=== PATIENT | female | born 1995 | race Hispanic/Latino ===

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

== ENCOUNTER 2017-06-04 15:42 | Emergency (ER) | payer OTHER ==
[2017-06-04] MEDS ORDERED: Sodium Chloride 0.9% 1,000 ML IV STA (16:29)
--- NOTE | 2017-06-04 16:33 | ED PDOC ---
HPI: Female Pain Time Seen by Provider: 06/04/17 16:19 Chief Complaint (Nursing): Female Genitourinary Chief Complaint (Provider): Female Genitourinary History Per: Patient History/Exam Limitations: no limitations Onset/Duration Of Symptoms: Days (x2) Current Symptoms Are (Timing): Still Present Additional Complaint(s): 22 year old female, currently 14 weeks with previous medical history of hypertension, ADHD and asthma, presents to the emergency department with a complaint of vaginal spotting associated with lower abdominal cramping, nausea and decreased appetite ongoing since last night. Denied any vomiting, diarrhea, painful urination, weakness or back pain. P:0 PMD: Unruly Hidalgo MD Past Medical History Reviewed: Historical Data, Nursing Documentation, Vital Signs Vital Signs: Last Vital Signs Temp 97.9 F 06/04/17 15:52 Pulse 95 H 06/04/17 15:52 Resp 18 06/04/17 15:52 BP 140/60 06/04/17 15:52 Pulse Ox 99 06/04/17 15:52 - Medical History PMH: Anxiety, Asthma, Depression, HTN, Hypercholesterolemia Denies: CHF, Deep Vein Thrombosis, Pulmonary Embolism Other PMH: ADHD - Surgical History Surgical History: No Surg Hx - Family History Family History: States: Unknown Family Hx - Social History Current smoker - smoking cessation education provided: No Alcohol: None Drugs: Denies - Home Medications Home Medications: Ambulatory Orders Medication Instructions Recorded Albuterol HFA [Ventolin HFA 90 1 puff IH ASDIR #1 unit 10/25/16 mcg/actuation (8 g)] Benzonatate 200 mg PO TID PRN #20 capsule 10/25/16 Levofloxacin [Levaquin] 500 mg PO DAILY #7 tablet 10/25/16 Permethrin [Elimite] 1 appl TP ONCE #1 bottle 10/31/16 - Allergies Allergies/Adverse Reactions: Allergies Allergy/AdvReac Type Severity Reaction Status Date / Time azithromycin Allergy RASH Verified 06/04/17 15:52 [From Zithromax Z-Shahab] Penicillins Allergy ANAPHYLAXIS Verified 06/04/17 15:52 Review of Systems ROS Statement: Except As Marked, All Systems Reviewed And Found Negative Gastrointestinal: Positive for: Nausea, Abdominal Pain (lower cramping), Other ( decreased appetite). Negative for: Vomiting, Diarrhea Genitourinary Female: Positive for: Vaginal Bleeding (spotting). Negative for: Dysuria Musculoskeletal: Negative for: Back Pain Neurological: Negative for: Weakness Physical Exam - Reviewed Nursing Documentation Reviewed: Yes Vital Signs Reviewed: Yes - Physical Exam Appears: Positive for: Well, Non-toxic, No Acute Distress Head Exam: Positive for: ATRAUMATIC, NORMAL INSPECTION, NORMOCEPHALIC Skin: Positive for: Normal Color Eye Exam: Positive for: Normal appearance, EOMI, PERRL. Negative for: Nystagmus Neck: Positive for: Normal, Painless ROM. Negative for: Decreased ROM Cardiovascular/Chest: Positive for: Regular Rate, Rhythm, Chest Non Tender Respiratory: Positive for: Normal Breath Sounds, Decreased Breath Sounds. Negative for: Wheezing, Respiratory Distress Gastrointestinal/Abdominal: Positive for: Soft, Tenderness (mild lower pelvis). Negative for: Normal Exam Back: Positive for: Normal Inspection. Negative for: L CVA Tenderness, R CVA Tenderness Extremity: Positive for: Normal ROM (lower). Negative for: Pedal Edema ( bilateral), Calf Tenderness (bilateral) Neurologic/Psych: Positive for: Alert (x3), Oriented - Laboratory Results Result Diagrams: 06/04/17 16:50 - ECG O2 Sat by Pulse Oximetry: 99 (RA) Pulse Ox Interpretation: Normal - CT Scan/US US Other Rad Studies (CT/US): Read By Radiologist Other Rad Interpretation: SLIUP - Progress ED Course And Treament: 1848: Stable. AAOx3. Pain free. Tolerated PO. FU with pcp. Medical Decision Making Medical Decision Making: Initial Impression: Vaginal bleeding Initial Plan: * Type and screen * ABO/RH type * BMP * Beta-HCG * Urine * Urine dipstick * CbC * NS 1,000ml IV per 1,000mls/hr * US OB transvaginal * US OB Scribe Attestation: Documented by Мария Owusu, acting as a scribe for Lam Austin MD. Provider Scribe Attestation: All medical record entries made by the Scribe were at my direction and personally dictated by me. I have reviewed the chart and agree that the record accurately reflects my personal performance of the history, physical exam, medical decision making, and the department course for this patient. I have also personally directed, reviewed, and agree with the discharge instructions and disposition. Disposition - Clinical Impression Clinical Impression: Threatened - Patient ED Disposition Is Patient to be Admitted: No Counseled Patient/Family Regarding: Studies Performed, Diagnosis, Need For Followup - Disposition [facility] - 06/05/17 Disposition: Routine/Home Disposition Time: 18:49 Condition: STABLE Additional Instructions: Return if not better in 3 days. Instructions: Threatened Miscarriage (ED)
[2017-06-04 17:07] LABS: BASO % 0.4 % (0.0-2.0); EOS # 0.1 K/uL (0.0-0.7); EOS % 0.5 % (0.0-4.0); HEMOGLOBIN 12.8 g/dL (12.0-16.0); LYMPH % 19.4 % (20.0-40.0); MEAN CELL VOLUME 93.5 fl (81.0-99.0); MEAN CORPUSCULAR HEMOGLOBIN 31.4 pg (27.0-31.0); MEAN CORPUSCULAR HGB CONC 33.6 g/dL (33.0-37.0); MONO # 0.7 K/uL (0.0-0.8); MONO % 6.5 % (0.0-10.0); NEUT # 7.7 K/uL (1.8-7.0); NEUT % 73.2 % (50.0-75.0); RBC 4.08 Mil/uL (3.80-5.20); RED CELL DISTRIBUTION WIDTH 12.6 % (11.5-14.5); WHITE BLOOD COUNT 10.6 K/uL (4.8-10.8)
[2017-06-04 19:00] VITALS: BP 120/70; PULSE 84; RESP 20; TEMP 98.2; O2SAT 98
[2017-06-04 19:47] LABS: CALCIUM 9.7 mg/dL (8.4-10.2); GFR AFRICAN-AMERICAN > 60; GFR NON-AFRICAN AMERICAN > 60
[2017-06-04 19:51] LABS: BLOOD UREA NITROGEN 5 mg/dl (7-17)
--- NOTE | 2017-06-05 09:54 | US ---
PROCEDURE: Limited ultrasound. LMP 02/12/2017 HISTORY: pain of Spotting 2 days duration. COMPARISON: None available. TECHNIQUE: Standard protocol for this study/examination. FINDINGS: Variable presentation. Posterior Placenta. No evidence of abruption or previa Gestational age derived from LMP 16 weeks Gestational age derived from the following biometric parameters 14 weeks 5 days . Biparietal diameter 2.5 cm Head [id number] cm Abdominal circumference 8.5 cm Femur length 1.4 cm Estimated weight 101 g Calculated cardiac rate 154 beats per min. Closed cervix measuring 4.13 cm IMPRESSION: 14 weeks 5 days live intrauterine gestation. LIANG based on biometry 11/28/2017. LIANG based on LMP 11/19/2017.
== END 2017-06-04 19:01 | disposition home or self-care (01) ==
LOC: H.ER 15:42
DX: O20.0 Threatened abortion (principal); O16.2 Unspecified maternal hypertension, second trimester; O99.282 Endocrine, nutritional and metabolic diseases complicating pregnancy, second trimester; Z3A.14 14 weeks gestation of pregnancy; Z88.0 Allergy status to penicillin; F90.9 Attention-deficit hyperactivity disorder, unspecified type; E78.00 Pure hypercholesterolemia, unspecified; F32.9 Major depressive disorder, single episode, unspecified; F41.9 Anxiety disorder, unspecified; J45.909 Unspecified asthma, uncomplicated
CPT/HCPCS: 76815; 80048; 81025; 84702; 85025; 86850; 86900; 96360; 99284; J7040